=== PATIENT | female | born 1965 ===

== ENCOUNTER 2024-04-10 06:08 | Day surgery (SDC) | payer BC, SELFPAY ==
[2024-03-30 09:05] VITALS: BMI 26.1
[2024-03-30 11:08] LABS: Hematocrit 38.4 % (37.0-47.0); Hemoglobin 13.4 g/dL (12.0-16.0); Mean Corp Hgb Conc. 34.9 g/dL (33.0-37.0); Mean Corpuscular Volume 94.6 fL (81.0-99.0); Mean Platelet Volume 10.8 fL (7.4-10.4); Platelet Count 248 10^3/uL (130-400); Red Blood Cell Count 4.06 10^6/uL (4.20-5.40); Red Cell Dist. Width 11.8 % (11.5-14.5); White Blood Cell Count 6.4 10^3/uL (4.8-10.8)
[2024-03-30 11:40] LABS: Blood Urea Nitrogen 20 mg/dl (7-17); Calcium 9.6 mg/dl (8.4-10.2); Carbon Dioxide 22 mmol/L (22-30); Chloride 104 mmol/L (98-107); Estimated Creatinine Clearance 58 ml/min; Glucose 73 mg/dl (70-99); Potassium 4.4 mmol/L (3.5-5.1); Sodium 140 mmol/L (135-145); eGFR > 60.00
--- NOTE | 2024-03-31 16:09 | PTCARENOTE ---
Dr. Vázquez reviewed abnormal EKG, no further action requested.
[2024-04-10] VITALS (7 sets, daily range): BP systolic 142–160; BP diastolic 79–100; BMI 26.1
[2024-04-10] MEDS: MOBIC 15 MG PO (06:29)
[2024-04-10] MEDS: TYLENOL 1000 MG PO (06:30)
[2024-04-10] MEDS: DEMEROL 12.5 MG IV (09:05)
== END 2024-04-10 10:37 | disposition home or self-care (01) ==
LOC: SDS 06:08
PROVIDERS: ATTENDING PHYSICIAN Student in an Organized Health Care Education/Training Program
DX: T84.84XA Pain due to internal orthopedic prosthetic devices, implants and grafts, initial encounter (principal); M20.22 Hallux rigidus, left foot; Y83.8 Other surgical procedures as the cause of abnormal reaction of the patient, or of later complication, without mention of misadventure at the time of the procedure
CPT/HCPCS: 28291; 20680; 80048; 85027; 93005